=== PATIENT | female | born 1960 | race American Indian/Alaskan Native ===

== ENCOUNTER 2016-06-05 18:05 | Emergency (ER) | payer BC ==
[2016-06-05 18:24] VITALS: TEMP 98.9; BMI 29.2
[2016-06-05] MEDS ORDERED: Alum-Mag Hydrox-Simethicone Susp (30 mL) PO STA (18:27)
--- NOTE | 2016-06-05 18:56 | ED PDOC ---
Arrival/HPI - General Chief Complaint: Chest Pain Time Seen by Provider: 06/05/16 18:22 Historian: Patient - History of Present Illness Narrative History of Present Illness (Text): 06/05/16 18:59 A 55 year old female, whose past medical history includes diabetes, hypertension and high cholesterol, presents to the emergency department complaining of chest pain since yesterday. Patient reports chest pain worsens upon deep breaths or movement and occasionally radiates to the back. She says the pain is heavy and sharp as well. Patient reports nausea and has been wanting to belch. Patient denies any shortness of breath, cough, constipation, fevers, vomiting, diarrhea, dysuria or any other complaints at this time. Time/Duration: Other (yesterday) Symptom Onset: Sudden Symptom Course: Unchanged Quality: Other (pain) Activities at Onset: Rest Modifying Factors (Text): none Context: Home Associated Symptoms (Text): nausea, lightheaded Past Medical History - Provider Review Nursing Documentation Reviewed: Yes - Cardiac Hx Hypertension: Yes - Pulmonary Hx Respiratory Disorders: No - Neurological Hx Neurological Disorder: No - HEENT Hx HEENT Disorder: No - Renal Hx Renal Disorder: No - Endocrine/Metabolic Hx Diabetes Mellitus Type 2: Yes - Hematological/Oncological Hx Blood Disorders: No - Integumentary Hx Dermatological Disorder: No - Musculoskeletal/Rheumatological Hx Musculoskeletal Disorders: No - Gastrointestinal Hx Gastrointestinal Disorders: No - Genitourinary/Gynecological Hx Genitourinary Disorders: No - Psychiatric Hx Psychophysiologic Disorder: No Hx Substance Use: No Family/Social History - Physician Review Nursing Documentation Reviewed: Yes Family/Social History: No Known Family HX Smoking Status: Never Smoked Hx Alcohol Use: No Hx Substance Use: No Allergies/Home Meds Allergies/Adverse Reactions: Allergies No Known Allergies Allergy (Verified 06/05/16 18:16) Home Medications: Home Meds Medication Instructions Recorded Confirmed Atorvastatin [Lipitor] 20 mg PO DAILY 06/05/16 06/05/16 Dapagliflozin Propanediol [Farxiga] 5 mg PO DAILY 06/05/16 06/05/16 Insulin Degludec [Tresiba 10 unit SC DAILY 06/05/16 06/05/16 Flextouch U-100] SITagliptin [Januvia] 100 mg PO DAILY 06/05/16 06/05/16 metFORMIN [glucOPHAGE] 500 mg PO DAILY 06/05/16 06/05/16 Review of Systems - Physician Review All systems were reviewed & negative as marked: Yes - Review of Systems Constitutional: absent: Fevers ENT: Normal Respiratory: absent: SOB, Cough Cardiovascular: Chest Pain Gastrointestinal: Nausea. absent: Constipation, Diarrhea, Vomiting Genitourinary Female: absent: Dysuria Musculoskeletal: Back Pain Skin: absent: Rash Neurological: Headache Physical Exam Vital Signs Reviewed: Yes Vital Signs Temp Pulse Resp BP Pulse Ox 06/05/16 20:35 70 16 137/92 H 98 06/05/16 18:23 98.9 F 78 20 136/69 100 Temperature: Afebrile Blood Pressure: Normal Pulse: Regular Respiratory Rate: Normal Appearance: Positive for: Well-Appearing, Non-Toxic, Comfortable Pain Distress: None Mental Status: Positive for: Alert and Oriented X 3 - Systems Exam Head: Present: Atraumatic, Normocephalic Pupils: Present: PERRL Conjunctiva: Present: Normal Mouth: Present: Moist Mucous Membranes Pharnyx: Present: Normal. No: ERYTHEMA, EXUDATE Neck: Present: Normal Range of Motion Respiratory/Chest: Present: Clear to Auscultation, Good Air Exchange, Tender to Palpation (midsternal area). No: Respiratory Distress Cardiovascular: Present: Regular Rate and Rhythm, Normal S1, S2. No: Murmurs Abdomen: Present: Normal Bowel Sounds. No: Tenderness, Distention, Peritoneal Signs Upper Extremity: Present: Normal Inspection. No: Cyanosis, Edema Lower Extremity: Present: Normal Inspection. No: Edema Neurological: Present: GCS=15, CN II-XII Intact, Speech Normal Skin: Present: Warm, Dry, Normal Color. No: Rashes Psychiatric: Present: Alert, Oriented x 3, Normal Insight, Normal Concentration Medical Decision Making ED Course and Treatment: 06/05/16 18:54 Impression: 55 year old female with atypical chest pain with sensation of wanting to belch and palpation makes the pain worse. Differential Diagnosis included but are not limited to: musculoskeletal pain vs. SERGIO/gas vs less likely ACS vs. Pulmonary embolism Plan: -- EKG -- Chest xray -- Urinalysis -- Labs -- Reassess and disposition Progress Notes: EKG: Ordered, reviewed, and independently interpreted the EKG. Rate : 79 BPM Rhythm : NSR Interpretation : Normal intervals, normal axis, no ST/T changes Comparison : No previous EKG for comparison. Chest Xray: nad as read by me 06/05/16 21:07 Patient with noted history with multiple risk factors for ACS, but patient reports that she just had a negative echo of the heart last month and negative stress test about two years ago. EKG is normal with no changes and pain is very atypical, reproducible and associated with belching. She was given maalox and pepcid here in the ED and was able to belch and says she feels so much better with full resolution of the discomfort. Labs are unremarkable with normal cardiac enzymes and normal d-dimer. Discussed with patient placing her on observation in the hospital, but she says she will definitely be able to follow up with her pmd on Tuesday in 1.5 days and does not want to stay in the hospital, understanding the risks of a heart attack and possible sequelae if she does not follow up. Patient will be discharged and advised to follow up with pmd luciano. - Lab Interpretations Lab Results: 06/05/16 18:50 06/05/16 18:50 Lab Results 06/05/16 20:15: Urine Color Yellow, Urine Appearance Clear, Urine pH 7.5, Ur Specific [place] 1.010, Urine Protein Negative, Urine Glucose (UA) Negative, Urine Ketones Negative, Urine Blood Negative, Urine Nitrate Negative, Urine Bilirubin Negative, Urine Urobilinogen 0.2, Ur Leukocyte Esterase Trace H, Urine RBC Negative, Urine WBC 0 - 2 06/05/16 18:50: Sodium 138, Potassium 4.0, Chloride 99, Carbon Dioxide 30, Anion Gap 13, BUN 13, Creatinine 0.8, Est GFR ( Amer) > 60, Est GFR (Non- Af Amer) > 60, Random Glucose 132 H, Calcium 9.9, Magnesium 2.0, Total Bilirubin 0.8, AST 38, ALT 62 H, Alkaline Phosphatase 99, Lactate Dehydrogenase 544, Total Creatine Kinase 68, Troponin I < 0.01, NT-Pro-B Natriuret Pep 26.1, Total Protein 8.3, Albumin 4.3, Globulin 4.0, Albumin/Globulin Ratio 1.1, Lipase 38 06/05/16 18:50: PT 10.6, INR 0.98, APTT 27.3, D-Dimer, Quantitative 0.19 06/05/16 18:50: WBC 4.9, RBC 4.65, Hgb 13.0, Hct 39.2, MCV 84.3, MCH 28.0, MCHC 33.2, RDW 13.5, Plt Count 247, MPV 10.9, Gran % 39.1 L, Lymph % (Auto) 48.8 H, Bennett % (Auto) 8.2 H, Eos % (Auto) 3.7, Baso % (Auto) 0.2, Gran # 1.91, Lymph # 2.4, Bennett # 0.4, Eos # 0.2, Baso # 0.01 I have reviewed the lab results: Yes - RAD Interpretation Radiology Orders: 06/05/16 18:28 CHEST PORTABLE [RAD] Stat - EKG Interpretation Interpreted by ED Physician: Yes Type: 12 lead EKG - Medication Orders Current Medication Orders: Discontinued Medications Al Hydrox/Mg Hydrox/Simethicone (Maalox Plus 30 Ml) 30 ml PO STAT STA Stop: 06/05/16 18:28 Last Admin: 06/05/16 18:53 Dose: 30 ml Famotidine (Pepcid) 20 mg IVP STAT STA Stop: 06/05/16 18:28 Last Admin: 06/05/16 18:53 Dose: 20 mg - Tracyibe Statement The provider has reviewed the documentation as recorded by the Dalia Barber All medical record entries made by the Dalia were at my direction and personally dictated by me. I have reviewed the chart and agree that the record accurately reflects my personal performance of the history, physical exam, medical decision making, and the department course for this patient. I have also personally directed, reviewed, and agree with the discharge instructions and disposition. Disposition/Present on Arrival - Present on Arrival Any Indicators Present on Arrival: No History of DVT/PE: No History of Uncontrolled Diabetes: No Urinary Catheter: No History of Decub. 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 Continue your current medications. Return to the emergency department if any new concerning symptoms.
[2016-06-05 19:14] LABS: ADD MANUAL DIFF? NO
[2016-06-05 19:27] LABS: ALB/GLOB RATIO 1.1 (1.1-1.8); ALKALINE PHOSPHATASE 99 U/L (38-133); ALT/SGPT 62 U/L (7-56); AST/SGOT 38 U/L (15-39); BILIRUBIN,TOTAL 0.8 mg/dL (0.2-1.3); BLOOD UREA NITROGEN 13 mg/dL (7-21); CALCIUM 9.9 mg/dL (8.4-10.5); CARBON DIOXIDE 30 mmol/L (21-33); CHLORIDE 99 mmol/L (98-107); GFR AFRICAN-AMERICAN > 60; GLUCOSE,RANDOM 132 mg/dL (70-110); LIPASE 38 U/L (23-300); SODIUM 138 mmol/L (132-148); TOTAL PROTEIN 8.3 g/dL (5.8-8.3)
[2016-06-05 19:37] LABS: BASO # 0.01 K/mm3 (0.0-2.0); BASO % 0.2 % (0.0-3.0); EOS # 0.2 (0.0-0.7); EOS % 3.7 % (1.5-5.0); GRAN # 1.91 (1.4-6.5); GRAN % 39.1 % (50.0-68.0); HEMATOCRIT 39.2 % (36.0-48.0); LYMPH # 2.4 (1.2-3.4); LYMPH % 48.8 % (22.0-35.0); MEAN CELL VOLUME 84.3 fL (80.0-105.0); MEAN CORPUSCULAR HGB CONC 33.2 g/dl (31.0-37.0); MEAN PLATELET VOLUME 10.9 fl (7.0-11.0); MONO # 0.4 (0.1-0.6); MONO % 8.2 % (1.0-6.0); PLATELET COUNT 247 10^3/uL (120.0-450.0); RED CELL DISTRIBUTION WIDTH 13.5 % (11.5-14.5); WHITE BLOOD COUNT 4.9 10^3/ul (4.5-11.0)
[2016-06-05 19:39] LABS: TROPONIN I < 0.01 ng/mL
[2016-06-05 20:08] LABS: INR 0.98 (0.93-1.08); PARTIAL THROMBOPLASTIN TIME 27.3 Seconds (23.7-30.8)
[2016-06-05 20:10] LABS: D DIMER 0.19 mg/L FEU (0-0.50)
[2016-06-05 20:25] LABS: PH,URINE 7.5 (4.7-8.0); URINE BILIRUBIN NEGATIVE (NEGATIVE); URINE BLOOD NEGATIVE (NEGATIVE); URINE GLUCOSE (UA) NEGATIVE (NEGATIVE); URINE KETONE NEGATIVE (NEGATIVE); URINE LEUKOCYTE ESTERASE TRACE Leu/uL (NEGATIVE); URINE PROTEIN NEGATIVE mg/dL (<30 mg/dL); URINE UROBILINOGEN 0.2 E.U./dL (<1 E.U./dL)
[2016-06-05 20:30] LABS: URINE APPEARANCE CLEAR (CLEAR); URINE COLOR YELLOW (YELLOW)
[2016-06-05 20:35] VITALS: RESP 16
[2016-06-05 20:41] LABS: URINE RBC NEGATIVE /hpf (0-2); URINE WBC 0 - 2 /hpf (0-6)
[2016-06-05 21:37] VITALS: BP 156/90; PULSE 65; O2SAT 99
--- NOTE | 2016-06-06 14:38 | RAD ---
HISTORY: cp COMPARISON: No prior. FINDINGS: LUNGS: No active pulmonary disease. PLEURA: No significant pleural effusion identified, no pneumothorax apparent. CARDIOVASCULAR: Heart size upper limits of normal. Pan. OSSEOUS STRUCTURES: No significant abnormalities. VISUALIZED UPPER ABDOMEN: Normal. OTHER FINDINGS: None. IMPRESSION: No active disease.
--- NOTE | 2016-06-06 22:13 | CARD ---
APPROVED REPORT EKG Measurement Heart [id number] <Conclusion> Normal sinus rhythm Normal ECG
== END 2016-06-05 21:37 | disposition home or self-care (01) ==
LOC: ED 18:05
DX: R07.89 Other chest pain (principal)